=== PATIENT | male | born 1970 | race Caucasian/White ===

== ENCOUNTER 2017-01-18 14:55 | Emergency (ER) | payer BC ==
[2017-01-18 15:08] VITALS: TEMP 100
--- NOTE | 2017-01-18 15:24 | RAD ---
PROCEDURE: Chest,2 Views CLINICAL HISTORY: COUGH, CONGESTION INDICATION: Same as above COMPARISON: 09/20/2015 TECHNIQUE: PA and and lateral chest radiographs were obtained. FINDINGS: The lung matthews are well inflated. There are no discrete airspace infiltrates, pneumothoraces or pleural effusions. The pulmonary vascularity is normal The cardiomediastinal silhouette is unremarkable for patient's age and sex. IMPRESSION: There is no acute pleural-parenchymal process seen in the imaged lung matthews. Place of interpretation: [facility]. Electronically signed by: Zac Godfrey MD 01/18/2017 3:25 PM CDT
[2017-01-18 15:40] VITALS: BP 148/87; O2SAT 98
--- NOTE | 2017-01-18 16:00 | ED.PDOC ---
History of Present Illness - General Chief Complaint: Respiratory Problem Time Seen by Provider: 01/18/17 15:51 Source: patient, RN notes reviewed, Vital Signs reviewed, family Exam Limitations: no limitations Additional Information: Pt reports 2 to 3 days of worsening URI and chest symptoms. Pt reports some difficulty breathing, and pleuritic chest pain along with occasionally productive cough. Pt reports fever to 103 degrees earlier today for which he took Ibuprofen. His Temp 100 after Ibuprofen. - History of Present Illness Timing/Duration: other - 2 to 3 days Severity: mild Improving Factors: nothing Worsening Factors: other - deep breaths Associated Symptoms: cough, fever/chills Allergies/Adverse Reactions: Allergies NO KNOWN ALLERGY Allergy (Verified 09/20/15 16:30) Home Medications: Ambulatory Orders Naproxen 375 mg PO BID PRN #10 tab 09/20/15 Tramadol HCl 50 mg PO BID #7 tab 09/20/15 raNITIdine HCL [Zantac] 150 mg PO BID PRN 09/20/15 Albuterol Inhaler [Ventolin Hfa Inhaler] 2 puff INH QID PRN #1 inh 01/18/17 Azithromycin [Zithromax Z-Phillip] 1 ea PO DAILY #1 pack 01/18/17 Prednisone 50 mg PO DAILY #5 tab 01/18/17 Review of Systems - Review of Systems Constitutional: States: fever, malaise EENTM: States: no symptoms reported Respiratory: States: see HPI, cough, short of breath Cardiology: States: see HPI, chest pain - pleuritic Gastrointestinal/Abdominal: States: no symptoms reported Genitourinary: States: no symptoms reported Musculoskeletal: States: no symptoms reported Skin: States: no symptoms reported Neurological: States: no symptoms reported Endocrine: States: no symptoms reported Hematologic/Lymphatic: States: no symptoms reported Past Medical History (General) - Patient Medical History Hx Stroke: No Hx of COPD: No Hx Cardiac Disorders: No Hx Congestive Heart Failure: No Hx Diabetes: No Surgical History: no surgical history - Vaccination History Hx Influenza Vaccination: No - Social History Hx Tobacco Use: No Hx Chewing Tobacco Use: Yes Family Medical History - Family History Father Living Status: Cause of : [place] Hx Cardiac Disease: Yes Hx Family Diabetes: Yes Physical Exam - Physical Exam General Appearance: Alert, Comfortable, No apparent distress - , occasional dry cough Eye Exam: bilateral normal Ears, Nose, Throat: normal ENT inspection, normal pharynx Neck: non-tender, full range of motion, supple Respiratory: chest non-tender, no respiratory distress, rales - diffuse, low pitched wheeze Cardiovascular/Chest: normal peripheral pulses, regular rate, rhythm, no edema, no JVD, no murmur Gastrointestinal/Abdominal: non tender, soft Back Exam: normal inspection Extremity: normal range of motion, non-tender Neurologic: 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 CXR normal for now but this can lag behind clinical picture. Pt maintaining normal POX and no resp distress therefore I will d/c home with Rx for Prednisone 5 day burst, Z-Phillip, and Albuterol inhaler. Pt can tolerate PO and he is encouraged to stay well hydrated and return to ER if condition worsens. - EKG/XRAY/CT XRAY: chest - No obvious inflitrate Departure - Departure Clinical Impression: Pneumonia Qualifiers: Pneumonia type: due to unspecified organism Laterality: unspecified laterality Lung location: unspecified part of lung Qualified Code(s): J18.9 - Pneumonia, unspecified organism Time of Disposition: 16:15 Disposition: Discharge to Home or Self Care Condition: Fair Departure Forms: ED Discharge - Pt. Copy, Patient Portal Self Enrollment Instructions: Pneumonia-Adult Prescriptions: Albuterol Inhaler [Ventolin Hfa Inhaler] 2 puff INH QID PRN #1 inh PRN Reason: Shortness Of Breath/Wheezing Azithromycin [Zithromax Z-Phillip] 1 ea PO DAILY #1 pack Prednisone 50 mg PO DAILY #5 tab Home Medications: Ambulatory Orders Naproxen 375 mg PO BID PRN #10 tab 09/20/15 Tramadol HCl 50 mg PO BID #7 tab 09/20/15 raNITIdine HCL [Zantac] 150 mg PO BID PRN 09/20/15 Albuterol Inhaler [Ventolin Hfa Inhaler] 2 puff INH QID PRN #1 inh 01/18/17 Azithromycin [Zithromax Z-Phillip] 1 ea PO DAILY #1 pack 04/29/17 Prednisone 50 mg PO DAILY #5 tab 01/18/17 Additional Instructions: Stay well hydrated with water. Take medicine as prescribed. Return to ER if condition worsens.
== END 2017-01-18 16:08 | disposition home or self-care (01) ==
LOC: ER 14:55
DX: J18.9 Pneumonia, unspecified organism (principal); Z87.891 Personal history of nicotine dependence; Z82.49 Family history of ischemic heart disease and other diseases of the circulatory system